=== PATIENT | male | born 1965 | race Caucasian/White ===

== ENCOUNTER 2020-04-13 17:01 | Emergency (ER) | payer OTHER ==
[~2020-04-13 17:01] MED LIST: ATACAND16 MG PO; GLUCOSAMINE HC500 MG PO; IBUPROFEN800 MG PO; NEXIUM40 MG PO; VITAMIN C 500500 MG PO
[2020-04-13 18:05] LABS: HEMOGLOBIN 14.3 gm/dl (14.0-17.5); RED BLOOD COUNT 4.68 M/UL (4.20-5.50); WHITE BLOOD COUNT 4.4 K/UL (4.5-11.0)
[2020-04-13 18:48] LABS: BUN/CREATININE RATIO 16 (0-10)
== END 2020-04-13 21:42 | disposition home or self-care (01) ==
LOC: ER1 17:01
PROVIDERS: Student in an Organized Health Care Education/Training Program
DX: U07.1 COVID-19 (principal); I10 Essential (primary) hypertension; F17.220 Nicotine dependence, chewing tobacco, uncomplicated; Z85.46 Personal history of malignant neoplasm of prostate
CPT/HCPCS: 36415; 80053; 85025; 93005; 99284; M0239